=== PATIENT | male | born 1980 | race Caucasian/White ===

== ENCOUNTER 2016-05-27 12:46 | Emergency (ER) | payer OTHER ==
[~2016-05-27] VITALS: Ht 170.2 cm; Wt 84.0 kg
[~2016-05-27 12:46] MED LIST: GABA-113 PO
[2016-05-27 12:50] VITALS: TEMP 36.7; Ht 170.2 cm; Wt 84.0 kg
--- NOTE | 2016-05-27 13:32 | DIAGNOSTIC IMAGING REPORT ---
RIGHT SHOULDER 3 VIEWS HISTORY: right shoulder pain. no trauma Right COMPARISON: None. FINDINGS: There is no fracture or dislocation. Soft tissues are unremarkable. No radiopaque foreign bodies. The right clavicle is intact. IMPRESSION: No fractures. Electronically signed by: Dvaid Martinez M.D. 05/27/2016 1:30 PM Dictated Date/Time: 05/27/2016 1:29 PM
[2016-05-27] MEDS ORDERED: DICL75TA2 PO (14:19)
[2016-05-27] MEDS ORDERED: PRED20TA2 PO (14:19)
[2016-05-27] MEDS ORDERED: HYDR-5688 PO (14:19)
[2016-05-27 14:30] VITALS: BP 133/91; PULSE 104; O2SAT 96
--- NOTE | 2016-05-28 08:04 | EMERGENCY ROOM VISIT NOTE ---
History First contact with patient: 12:52 Chief Complaint: SHOULDER PAIN Stated Complaint: REALLY BAD PAIN IN R SHOULDER History of Present Illness The patient is a 36 year old male who presents to the Emergency Room with complaints of right shoulder worsening over the past 2-3 months. The patient does not recall distinct injury or trauma. 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 The patient's symptoms are worse when he raises his hand above his head. He does not have numbness or paresthesias. No chest pain or shortness of breath. He is intermittently taking ibuprofen and Tylenol with minimal improvement. He rates his discomfort a 7/10 that worsens with certain movement. Review of Systems More than 10 systems were reviewed and otherwise negative with the exception of history of present illness. Past Medical/Surgical History Medical Problems: (1) Closed fracture of forearm (2) Conjunctivitis Surgical Problems: (1) S/P wrist surgery Family History Diabetes mellitus Hypertension Social History Smoking Status: Current Every Day Smoker Alcohol Use: none Drug Use: none Marital Status: Housing Status: lives with significant other Occupation Status: unemployed Current/Historical Medications Scheduled Diclofenac Sodium (Voltaren), 75 MG PO BID Gabapentin (Neurontin), 300 MG PO TID Prednisone (Prednisone Tab), 2 TAB PO DAILY Scheduled PRN Hydrocodone/Acetaminophen 5MG/325MG (P[place] 5MG/325MG), 1 TABLET PO Q6 PRN for Pain Allergies Coded Allergies: Beet (Unverified Allergy, Unknown, UNKNOWN, 05/27/16) Physical Exam Vital Signs Date Time Temp Pulse Resp B/P Pulse Ox O2 Delivery O2 Flow Rate FiO2 05/27/16 14:30 104 20 133/91 96 05/27/16 12:50 36.7 112 16 139/82 96 Pain Rating (0-10): 3.0 Physical Exam VITALS: Vitals are noted on the nurse's note and reviewed by myself. Vital signs stable. GENERAL: Well-developed, well-nourished, white male, who is in no acute distress and resting comfortably. Patient is cooperative with the examination. HEAD: Normocephalic atraumatic. NECK: Supple without nuchal rigidity. No lymphadenopathy. No thyromegaly. Cervical spine is nontender. HEART: Regular rate and rhythm without murmurs gallops or rubs. LUNGS: Clear to auscultation bilaterally without wheezes, rales or rhonchi. No retractions or accessory muscle use. MUSCULOSKELETAL: No muscle atrophy, erythema, or edema noted. Positive tenderness throughout the superior and lateral right shoulder. Positive empty can. Negative apprehension. NEURO: Patient was alert and oriented to person place and time. CN II through XII grossly intact. Deep tendon reflexes 2+ throughout. Medical Decision & Procedures ER Provider Diagnostic Interpretation: RIGHT SHOULDER 3 VIEWS HISTORY: right shoulder pain. no trauma Right COMPARISON: None. FINDINGS: There is no fracture or dislocation. Soft tissues are unremarkable. No radiopaque foreign bodies. The right clavicle is intact. IMPRESSION: No fractures. ED Course Physical exam and history were performed. Nursing notes and EMR were reviewed. Patient appears to have atraumatic right shoulder pain for the past few months. His symptoms worsen with certain range of motion. X-rays were obtained and do not show evidence of acute fracture or dislocation. Clinically his symptoms are likely related to tendinitis or rotator cuff irritation. The patient will be started on NSAIDs and a very short course of steroids and Vicodin. He is to follow with orthopedics for further care and management. He was otherwise invited back to the ER with any new, worsening, or concerning symptoms. The chart was completed utilizing [employer] Speech Voice Recognition Software. Grammatical errors, random word insertions, pronoun errors, and incomplete sentences are an occasional consequence of this system due to software limitations, ambient noise, and hardware issues. Any formal questions or concerns about the content, text, or information contained within the body of this dictation should be directly addressed to the provider for clarification. . Medical Decision Differential diagnosis includes, but is not limited to: Sprain, strain, fracture , dislocation, subluxation, contusion, and others [place] Drug Monitoring Program Search Results: patient reviewed within database, no issues identified Impression Primary Impression: Right shoulder pain Departure Information Dispostion Home / Self-Care Condition GOOD Prescriptions Hydrocodone/Acetaminophen 5MG/325MG ([place] 5MG/325MG) Tab 1 TABLET PO Q6 Y for Pain, #12 TAB For Initial Treatment Prov: Matias Resendiz PA-C 05/27/16 Prednisone (Prednisone Tab) 20 Mg Tab 2 TAB PO DAILY for 5 Days, #10 TAB Prov: Matias Resendiz PA-C 05/27/16 Diclofenac Sodium (VOLTAREN) 75 Mg Tab 75 MG PO BID for 14 Days, #28 TAB Prov: Matias Resendiz PA-C 05/27/16 Referrals Ernie Javier D.O. Forms HOME CARE DOCUMENTATION FORM, IMPORTANT VISIT INFORMATION Patient Instructions My [facility] Additional Instructions You were seen and evaluated today on an emergency basis only. This is not a substitute for, or an effort to provide, complete comprehensive medical care. It is not possible to recognize and treat all injuries or illnesses in a single emergency department visit. For this reason it is recommended that you followup with [facility], Dr. Javier's office, next week for ongoing care and evaluation. Call the office to schedule an appointment. Diclofenac 75 mg twice daily with food. Take prednisone as prescribed. Phoenix (hydrocodone/acetaminophen) 5/325 mg every 6 hours as needed for worsening breakthrough pain. Do not drink or drive on [place]. This medication will likely make you tired. Do not take Phoenix and Tylenol at the same time as both contain acetaminophen. Phoenix may cause constipation. You may wish to take an [id number] stool softener like Colace if this occurs. You are welcome to return to the emergency department anytime with new, worsening, or concerning symptoms.
== END 2016-05-27 14:35 | disposition home or self-care (01) ==
LOC: C.EDB 12:48 → C.EDD 14:35
DX: M25.511 Pain in right shoulder (principal); Z87.828 Personal history of other (healed) physical injury and trauma; Z82.49 Family history of ischemic heart disease and other diseases of the circulatory system; Z83.3 Family history of diabetes mellitus; F17.200 Nicotine dependence, unspecified, uncomplicated

== ENCOUNTER 2016-07-31 06:15 | Emergency (ER) | payer OTHER ==
[~2016-07-31] VITALS: Ht 170.2 cm; Wt 85.7 kg
[~2016-07-31 06:15] MED LIST changes: +HYDR-5688 PO
[2016-07-31 06:19] VITALS: TEMP 36.6; Ht 170.2 cm; Wt 85.7 kg
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
[2016-07-31] MEDS ORDERED: OXYCODONE HCL IR 5 MG TAB (IMMEDIATE RELEASE) PO STA (07:07)
[2016-07-31] MEDS ORDERED: OXYC1TAB3 PO (07:10)
[2016-07-31 07:16] VITALS: BP 137/92; PULSE 93; O2SAT 97
== END 2016-07-31 07:30 | disposition home or self-care (01) ==
LOC: C.EDB 06:16
DX: S62.304A Unspecified fracture of fourth metacarpal bone, right hand, initial encounter for closed fracture (principal); S62.306A Unspecified fracture of fifth metacarpal bone, right hand, initial encounter for closed fracture; Y93.83 Activity, rough housing and horseplay; W50.0XXA Accidental hit or strike by another person, initial encounter; Z83.3 Family history of diabetes mellitus; Z82.49 Family history of ischemic heart disease and other diseases of the circulatory system; F17.210 Nicotine dependence, cigarettes, uncomplicated; Z79.899 Other long term (current) drug therapy

== ENCOUNTER → 2016-08-28 | Outpatient (CLI) | payer OTHER ==
[~2016-08-28] MED LIST changes: -HYDR-5688 PO; +OXYC1TAB3 PO
== END | disposition home or self-care (01) ==
LOC: C.RDSM 07:38
PROVIDERS: ATTEND Family Medicine Sports Medicine
DX: S62.91XA Unspecified fracture of right hand, initial encounter for closed fracture (principal); X58.XXXA Exposure to other specified factors, initial encounter

== ENCOUNTER 2017-05-04 17:19 | Emergency (ER) | payer OTHER ==
[~2017-05-04] VITALS: Ht 170.2 cm; Wt 84.0 kg
[~2017-05-04 17:19] MED LIST changes: -OXYC1TAB3 PO
[2017-05-04 17:32] VITALS: TEMP 36.8; Ht 170.2 cm; Wt 84.0 kg
[2017-05-04] MEDS ORDERED: IBUPROFEN 600 MG TAB PO STA (17:54)
--- NOTE | 2017-05-04 17:59 | EMERGENCY ROOM VISIT NOTE ---
ED Visit Note First contact with patient: 17:48 CHIEF COMPLAINT: Right thumb laceration HISTORY OF PRESENT ILLNESS: This 37-year-old male patient presents to the emergency department by private vehicle after injury to the right thumb. The patient states that he was working on a transmission and dropped it on the tip of his thumb, crushing it. He estimates that the transmission weighs approximately 200-300 pounds. The bleeding has stopped. He states he has some tingling in the tip of the thumb, but denies weakness or numbness of the finger. The patient has full range of motion of all the fingers. The patient rates the pain as throbbing and 3/10. The patient denies any other injuries. The patient's tetanus shot is not up to date. He is right-hand dominant. He denies taking any blood thinners. REVIEW OF SYSTEMS: A 6 system review of systems was completed with positives and pertinent negatives listed in the HPI. ALLERGIES: Reviewed in chart. MEDICATIONS: Reviewed in chart. PMH: No significant past medical or surgical history. SOCIAL HISTORY: Lives at home. He is a current everyday smoker, denies alcohol or recreational drugs. PHYSICAL EXAM: Vital Signs: Reviewed Nurse's notes, vital signs stable. GENERAL : Pleasant and cooperative, in no acute distress, well developed, well nourished. SKIN: There is a 1 cm long irregular, somewhat macerated flap laceration on the finger pad of the right thumb just below the nail. Laceration does not extend into the nail bed or cuticle. The edges gape apart with traction and the flap is easily lifted up off of the underlying tissue. There is no foreign material in the wound and it looks clean. There is minimal bleeding. No deep structures such as tendons, bones, or significant blood vessels are seen in the base of the wound. Extension and flexion of the finger is full and strong. Full range of motion of the wrist and other fingers. Capillary refill less than 2 seconds. Normal sensation to light and sharp touch. IMAGING: RIGHT THUMB 3 VIEWS CLINICAL HISTORY: Pain status post trauma COMPARISON: None. DISCUSSION: No acute fractures or dislocations are visualized. There is minimal debris beneath the nailbed. There is a large corticated ossicle adjacent to the ulnar styloid, likely related to old trauma IMPRESSION: No acute fractures or dislocations are visualized. EMERGENCY DEPARTMENT COURSE: I examined the patient. Differential diagnosis includes contusion, laceration, retained foreign body, open fracture, among others. An x-ray of the right thumb was performed, showing no acute fracture. Verbal consent was obtained to perform the procedure. Using sterile technique the wound was cleansed with Betadine. 5 ml of 1% buffered lidocaine was used to perform a digital block to anesthetize the patient. The area was sterilely draped. Once the patient was anesthetized, the wound was copiously irrigated under pressure with sterile saline. There was a moderate amount of black grime under the fingernail and within the wound that was removed fully with irrigation. The wound was explored and there were no deep structures injured. The laceration was repaired using 1 horizontal mattress stitch with 5-0 nylon sutures to secure the flap. The patient tolerated the procedure well. Hemostasis was achieved. The area was cleaned with sterile saline and dressed with bacitracin ointment and bandage. The patient was given a tetanus booster. Patient was educated regarding wound care, follow-up, and return precautions, he verbalized understanding. The patient was discharged home in stable condition and ambulatory. Problem List Medical Problems: (1) Closed fracture of forearm Status: Resolved (2) Conjunctivitis Status: Resolved Surgical Problems: (1) S/P wrist surgery Status: Resolved Current/Historical Medications Scheduled Gabapentin (Neurontin), 300 MG PO TID Allergies Coded Allergies: Beet (Unverified Allergy, Unknown, UNKNOWN, 07/31/16) Vital Signs Date Time Temp Pulse Resp B/P (MAP) Pulse Ox O2 Delivery O2 Flow Rate FiO2 05/04/17 19:55 78 18 130/72 98 05/04/17 18:56 88 20 132/72 98 Room Air 05/04/17 17:32 36.8 76 20 145/76 97 Room Air Medications Administered Medications (Trade) Dose Ordered Sig/Kai Route Start Time Stop Time Status Last Admin Dose Admin Ibuprofen (Motrin Tab) 600 mg NOW STAT PO 05/04/17 17:54 05/04/17 17:57 DC 05/04/17 18:52 600 MG Diphtheria/ Pertussis/Tetanus Vacc (Adacel Inj) 0.5 ml ONCE ONCE IM. 05/04/17 18:00 05/04/17 18:01 DC 05/04/17 18:53 0.5 ML Departure Information Impression Primary Impression: Laceration of right thumb Dispostion Home / Self-Care Condition GOOD Referrals No Doctor, Assigned (PCP) Patient Instructions ED Laceration Hand, My [facility] Additional Instructions You have been evaluated and treated in the emergency department for the laceration to right thumb. You received a tetanus shot today. Please follow-up with your PCP, in urgent care, or ER for suture removal in 10 days. Keep wound clean and dry. Do not allow any crusting or dried blood to accumulate on sutures. If this occurs, use a 1:1 solution of hydrogen peroxide/ water on a Q-tip to clean the wound. Do not submerge the wound under water until the sutures have been removed. Use an antibiotic ointment for 4 days, then let wound dry. Keep covered with a Band-Aid. Ice and elevate for swelling and pain. Ibuprofen 600 mg and Tylenol 1000 mg every 6-8 hours as needed for pain. As with all lacerations, there may be temporary or permanent nerve damage or scarring. Keep covered when in sun until sutures removed then SPF 50 or higher for one year. Vitamin E oil if desired two weeks after suture removal for reduction of scar. Please seek immediate medical attention for any signs of infection (increasing redness, pain, swelling, pus drainage from the wound, streaking up the hand, fever/chills). Work Instructions Return To Work: 1 day Problem Qualifiers Primary Impression: Laceration of right thumb Encounter type: initial encounter Damage to nail status: without damage Foreign body presence: without foreign body Qualified Codes: S61.011A - Laceration without foreign body of right thumb without damage to nail, initial encounter
[2017-05-04] MEDS ORDERED: XYLOCAINE 1%/SOD BICARB 20 ML VIAL INFIL ONE (18:00)
[2017-05-04] MEDS ORDERED: DIPHTHERIA/TETANUS/PERTUSSIS 0.5 ML SYR/VIAL IM. ONE (18:00)
--- NOTE | 2017-05-04 18:21 | DIAGNOSTIC IMAGING REPORT ---
RIGHT THUMB 3 VIEWS CLINICAL HISTORY: Pain status post trauma COMPARISON: None. DISCUSSION: No acute fractures or dislocations are visualized. There is minimal debris beneath the nailbed. There is a large corticated ossicle adjacent to the ulnar styloid, likely related to old trauma IMPRESSION: No acute fractures or dislocations are visualized. Electronically signed by: Steven Ramírez M.D. 05/04/2017 6:19 PM Dictated Date/Time: 05/04/2017 6:18 PM
[2017-05-04 19:55] VITALS: BP 130/72; PULSE 78; O2SAT 98
== END 2017-05-04 19:57 | disposition home or self-care (01) ==
LOC: C.EDB 17:20 → C.EDD 19:57
DX: S61.011A Laceration without foreign body of right thumb without damage to nail, initial encounter (principal); W20.8XXA Other cause of strike by thrown, projected or falling object, initial encounter; Z91.018 Allergy to other foods; Z23 Encounter for immunization